=== PATIENT | male | born 1970 ===

== ENCOUNTER 2019-05-29 08:45 | Emergency (ER) | payer OTHER ==
[~2019-05-29] VITALS: Ht 190.5 cm; Wt 99.3 kg
== END 2019-05-29 10:03 | disposition home or self-care (01) ==
LOC: ER 08:45
DX: H10.13 Acute atopic conjunctivitis, bilateral (principal)

== ENCOUNTER → 2020-04-08 15:00 | Outpatient (CLI) | payer OTHER | END | disposition home or self-care (01) | LOC: RAD 15:00 | PROVIDERS: ATTEND Physical Medicine & Rehabilitation Sports Medicine | DX: M25.511 Pain in right shoulder (principal) ==

== ENCOUNTER 2023-01-11 08:03 | Outpatient (CLI) | payer OTHER | END 2023-01-11 08:14 | disposition home or self-care (01) | LOC: RAD 08:03 | PROVIDERS: ATTEND Physical Medicine & Rehabilitation Sports Medicine | DX: M77.11 Lateral epicondylitis, right elbow (principal); M18.12 Unilateral primary osteoarthritis of first carpometacarpal joint, left hand ==

== ENCOUNTER 2024-05-22 10:34 | Outpatient (CLI) | payer OTHER | END 2024-05-22 10:38 | disposition home or self-care (01) | LOC: RAD 10:34 | PROVIDERS: ATTEND Physical Medicine & Rehabilitation Sports Medicine | DX: M65.312 Trigger thumb, left thumb (principal) ==